=== PATIENT | female | born 1995 | race African-American/Black ===

== ENCOUNTER 2024-10-28 23:33 | Emergency (ER) | payer MEDICAID ==
[~2024-10-28] VITALS: Ht 167.6 cm; Wt 48.7 kg
[2024-10-28 23:40] VITALS: BP 149/68; TEMP 36.7; O2SAT 100
[2024-10-28 23:45] VITALS: PULSE 107; RESP 16; O2SAT 97
[2024-10-29] MEDS ORDERED: CLOT15CR27 TP (01:09)
== END 2024-10-29 01:40 | disposition home or self-care (01) ==
LOC: ER 23:33
DX: B35.4 Tinea corporis (principal)
CPT/HCPCS: 99282

== ENCOUNTER 2024-12-31 15:03 | Emergency (ER) | payer MEDICAID ==
[~2024-12-31] VITALS: Ht 162.6 cm; Wt 49.0 kg
[~2024-12-31 15:03] MED LIST: CLOT15CR27 TP
[2024-12-31 15:15] VITALS: O2SAT 100
[2024-12-31 15:21] VITALS: BP 106/62; PULSE 82; RESP 18; TEMP 36.9; O2SAT 100
[2024-12-31] MEDS ORDERED: CLOT15CR27 TP (16:50)
== END 2024-12-31 17:10 | disposition home or self-care (01) ==
LOC: ER 15:03
DX: B35.4 Tinea corporis (principal); Z76.0 Encounter for issue of repeat prescription
CPT/HCPCS: 99281

== ENCOUNTER 2025-03-31 17:59 | Emergency (ER) | payer MEDICAID ==
[~2025-03-31] VITALS: Ht 162.6 cm; Wt 52.0 kg
[2025-03-31 18:31] VITALS: TEMP 36.9; O2SAT 100
[2025-03-31 22:54] VITALS: BP 97/55; PULSE 76; RESP 14; O2SAT 100
== END 2025-03-31 22:54 | disposition home or self-care (01) ==
LOC: ER 17:59
DX: R21 Rash and other nonspecific skin eruption (principal); Z79.899 Other long term (current) drug therapy
CPT/HCPCS: 99282; 99283